=== PATIENT | male | born 1985 | race Caucasian/White ===

== ENCOUNTER → 2016-04-29 | Day surgery (SDC) | payer OTHER ==
[2007-09-08 11:13] VITALS: BP 129/75
[~2016-04-29] MED LIST: LISINOPRIL-HCT1 EAC2 PO; PROAIR HFA8.5 GM INH; VYVANSE60 M1 PO
--- NOTE | 2016-04-29 09:57 | Operative Report ---
Operative/Inv Procedure Report Surgery Date: 04/29/16 Name of Procedure: 1. Tonsillectomy and adenoidectomy 2. Uvulopalatopharyngoplasty Pre-Operative Diagnosis: 1. Tonsillar hypertrophy 2. Adenoid hypertrophy 3. Uvular hypertrophy 4. Low-lying soft palate 5. Obstructive sleep apnea Post-Operative Diagnosis: Same Estimated Blood Loss: scant Surgeon/Oil Field Laborer: GUCCI DEAL MD Anesthesia: general endotracheal tube Drains: none Specimens: Right tonsil and adenoids left tonsil and uvula Complications: none Condition: Stable in leaving the OR Operative Indication: Mouth breathing and heavy snoring Muffled voice Recurrent tonsillitis Obstructive sleep apnea with poor tolerance of CPAP Frequent throat obstruction on falling asleep Operative/Procedure Note Note: Patient was brought to the operating room. Placed on the operating table in supine position. First timeout was performed including patient's name, ID number and planned procedure. Then general orotracheal anesthesia was induced. Endotracheal tube was taped in the midline. Oral cavity was exposed with oral cavity retractor, endotracheal tube positioned in the midline over the tongue. Soft palate was palpated. There was no submucous cleft. Nasopharynx was visualized with a mirror. There was moderate adenoid hypertrophy with obstruction of the nasopharynx. Two red rubber catheters were placed into the nose for elevation of soft palate and secured in place with Negrita clamps. Nasopharynx was visualized with a mirror. Medium-sized adenoid curette was used to shave the adenoids. Additional tissue was removed from the choana with [place] Pulido forceps. Bleeding was controlled by application of pressure with tonsil sponges. Then cautery of the adenoidal bed was carried with the suction Bovie set on coag of 35. At the end of the adenoidectomy there was no further bleeding and nasopharynx was widely patent. Next, Right tonsil was grasped with curved Allis, incision was placed over the anterior superior pole of the mucosa only. Tonsil capsule was identified and dissection was carried from superior to inferior until the entire tonsil was removed. Next the left tonsil was grasped with curved Allis. Incision was placed with the Bovie over the anterior-superior pole through the mucosa only. Tonsillar capsule was identified and dissection carried from the superior to the inferior until the entire tonsil was removed. Dissection was carried with a Bovie, pencil-tip with foot control set on cut of 5 and coag of 15. At the end of the procedure tonsillar fossa was inspected for bleeders. Additional cautery was carried to assure adequate hemostasis. During dissection both tonsils were markedly scarred down and fibrosed. There were very friable and had a great deal of crypts and concretions. Next uvulopalatopharyngoplasty was performed. Uvula was markedly hypertrophied and descending onto the base of tongue. It was grasped with forceps and two thirds of the uvula was removed with the Bovie set on coag of 10 and cut of 10. Once Uvulectomy was completed. Right side of the soft palate was addressed and Bovie was used to remove a wedge of soft palate adjacent to the uvula. Similar procedure was carried on the right side. This was done with the Bovie. All mucosal edges were then approximated over the lateral and medial aspect of the palate extending onto the uvula. 4-0 chromic was used for the stitching. Uvula, its mucosal edges were then approximated with 4-0 chromic simple sutures. This led to improvement in the oropharyngeal airway. Surgery was completed. Stomach was suctioned with an OG tube. The patient was reawakened, extubated and taken to the recovery room in good condition. There were no complications. Estimated blood loss was minimal. Findings: Tonsils 4+ with marked exophytic and endophytic component, markedly scarred down onto the tonsillar fossa, great deal of concretions Adenoids hypertrophy with obstruction of the nasopharynx Uvula marked hypertrophy with obstruction of the oropharynx and extension onto the base of tongue Soft palate low-lying with obstruction of the oropharynx Discharge Disposition: Same Day Admissions Tonsillar capsule was identified and dissection carried from the superior to the inferior until the entire tonsil was removed. Dissection was carried with a Bovie, pencil-tip with foot control set on cut of 5 and coag of 15. At the end of the procedure tonsillar fossa was inspected for bleeders. Additional cautery was carried to assure adequate hemostasis. During dissection both tonsils were markedly scarred down and fibrosed. There were very friable and had a great deal of crypts and concretions. Surgery was completed. Stomach was suctioned with an OG tube. The patient was reawakened, extubated and taken to the recovery room in good condition. There were no complications. Estimated blood loss was minimal. Next uvulopalatopharyngoplasty was performed. Uvula was markedly hypertrophied and descending onto the base of tongue. It was grasped with forceps and two thirds of the uvula was removed with the Bovie set on coag of 10 and cut of 10. Once Uvulectomy was completed. Right side of the soft palate was addressed and Bovie was used to remove a wedge of soft palate adjacent to the uvula. Similar procedure was carried on the right side. This was done with the Bovie. All mucosal edges were then approximated over the lateral and medial aspect of the palate extending onto the uvula. 4-0 chromic was used for the stitching. Uvula, its mucosal edges were then approximated with 4-0 chromic simple sutures. This led to improvement in the oropharyngeal airway.
== END ==
LOC: STS 01:58
DX: J03.90 Acute tonsillitis, unspecified (principal); K13.79 Other lesions of oral mucosa; G47.33 Obstructive sleep apnea (adult) (pediatric); J35.2 Hypertrophy of adenoids; Z68.42 Body mass index [BMI] 45.0-49.9, adult; E66.01 Morbid (severe) obesity due to excess calories; I10 Essential (primary) hypertension; Z72.0 Tobacco use
CPT/HCPCS: 88304; 88305; J0131; J0690; J2250; J2405